=== PATIENT | male | born 1995 | race Caucasian/White ===

== ENCOUNTER 2020-02-08 17:01 | Inpatient (IN) | payer OTHER ==
[~2020-02-08] VITALS: Ht 182.9 cm; Wt 110.7 kg
[2020-02-08] MEDS ORDERED: ONDANSETRON 4MG ODT PO ONE (18:45)
[2020-02-08] MEDS ORDERED: ACETAMINOPHEN 325MG TABLET PO ONE (18:45)
[2020-02-08 19:12] LABS: CLARITY URINE CLEAR (CLEAR); COLOR URINE DARK YELLOW (YELLOW); KETONES URINE 1+ (NEGATIVE); LEUKOCYTE ESTERASE URINE TRACE (NEGATIVE); NITRITE URINE NEGATIVE (NEGATIVE); OCCULT BLOOD URINE TRACE (NEGATIVE); PROTEIN URINE 3+ (NEGATIVE); SPECIFIC GRAVITY URINE 1.035 (1.005-1.030)
[2020-02-08 19:13] LABS: BASOPHILS % 0.2 % (0.0-2.0); HEMATOCRIT. 46.3 % (42.0-52.0); HEMOGLOBIN. 16.3 g/dL (14.0-18.0); LYMPHOCYTES % 16.9 % (20.0-50.0); MEAN CORPUSCULAR HEMOGLOBIN 30.3 pg (28.0-32.0); MEAN CORPUSCULAR VOLUME 86.1 fL (80.0-94.0); MEAN PLATELET VOLUME 7.4 fl (7.4-10.4); MONOCYTES % 5.1 % (2.0-8.0); NEUTROPHILS % 77.8 % (40.0-76.0); PLATELET 171 x1000/uL (130-400); RED BLOOD CELL COUNT 5.38 mill/uL (4.7-6.1); RED CELL DISTRIBUTION WIDTH 12.6 % (11.6-14.6)
[2020-02-08 19:19] LABS: CHLORIDE 107 mEq/L (98-107)
[2020-02-08] MEDS ORDERED: LIDOCAINE HCL/PF 0.5% 5 MG/ML 50ML VIAL INFIL ONE (19:45)
[2020-02-08] MEDS ORDERED: CEFTRIAXONE SODIUM 1 G/VIAL IM ONE (19:45)
[2020-02-08] MEDS ORDERED: AZITHROMYCIN 500 MG in DEXT 5% WATER 250 ML IV ONE (21:00)
[2020-02-08] MEDS ORDERED: DEXAMETHASONE 10 MG/ML VIAL IV ONE (21:45)
[2020-02-08] MEDS ORDERED: ENOXAPARIN 100MG/ML SYR SUBCUT ONE (21:45)
[2020-02-09] MEDS ORDERED: MAGNESIUM/ALUMINUM HYDROXIDE/SIMETHICONE 30ML UDC PO ONE (07:15)
[2020-02-09] MEDS ORDERED: MAGNESIUM/ALUMINUM HYDROXIDE/SIMETHICONE 30ML UDC PO PRN (07:45)
[2020-02-09] MEDS ORDERED: DIPHENHYDRAMINE 50MG/ML VIAL IV PRN (07:45)
[2020-02-09] MEDS: METHYLPREDNISOLONE SOD SUCC 40 MG/ML VIAL IV SCH ×2 (08:28→16:15)
[2020-02-09] MEDS: ONDANSETRON HCL 4MG/2ML INJ IV PRN (08:29)
[2020-02-09] MEDS: ENOXAPARIN 40MG/0.4ML SYR SUBCUT SCH (08:30)
[2020-02-09 12:00] VITALS: BP 129/79
[2020-02-09] MEDS: ACETAMINOPHEN 325MG TABLET PO PRN ×4 (12:42→20:48)
[2020-02-09 13:33] LABS: BG BASE EXCESS 0.2 mmol/L (-2.0-2.0); BG CARBOXYHEMOGLOBIN 0.7 % (0.5-1.5); BG DEOXYHEMOGLOBIN 13.3 % (0.0-5.0); BG HCO3 ACT 24.1 mmol/L (22.0-26.0); BG METHEMOGLOBIN 0.4 % (0.0-1.5); BG OXYGEN SATURATION 86.6 % (92.0-98.5); BG OXYHEMOGLOBIN 85.6 % (94.0-97.0); BG PCO2 37.2 mmHg (35.0-45.0); BG PO2 48.9 mmHg (75.0-100.0); BG SAMPLE SITE RIGHT RADIAL; BG TOTAL HEMOGLOBIN 15.4 g/dL (12.0-18.0)
[2020-02-09 15:52] VITALS: BP 129/79
[2020-02-09 16:00] VITALS: BP 123/70
[2020-02-09] MEDS ORDERED: DEXTROSE 50% WATER 50ML SYRINGE IV PRN (16:15)
[2020-02-09] MEDS: BLOOD SUGAR DIAGNOSTIC STRIP TEST SCH ×2 (17:10→21:31)
[2020-02-09] MEDS: INSULIN LISPRO 100 UNITS/ML SUBCUT SCH ×2 (17:40→21:31)
[2020-02-09] MEDS ORDERED: GUAIFENESIN-DM 200MG-20MG/10ML UDC PO PRN (18:45)
[2020-02-09 20:00] VITALS: BP 129/74
[2020-02-09] MEDS ORDERED: AZITHROMYCIN 500 MG in DEXT 5% WATER 250 ML IV SCH (20:00)
[2020-02-09] MEDS ORDERED: CEFTRIAXONE 1,000 MG in DEXTROSE 5% WATER 50 ML IV SCH (21:00)
[2020-02-09] MEDS: AZITHROMYCIN 500 MG in DEXT 5% WATER 250 ML IV SCH (21:31)
[2020-02-09] MEDS: HYDROCODONE/ACETAMINOPHEN 5/325MG TABLET PO PRN (23:50)
[2020-02-10] VITALS: BP 130/119
[2020-02-10 04:00] VITALS: BP 119/68
[2020-02-10] MEDS: HYDROCODONE/ACETAMINOPHEN 5/325MG TABLET PO PRN (06:04)
[2020-02-10] MEDS: BLOOD SUGAR DIAGNOSTIC STRIP TEST SCH ×4 (06:05→20:37)
[2020-02-10] MEDS: INSULIN LISPRO 100 UNITS/ML SUBCUT SCH ×4 (06:05→20:57)
[2020-02-10] MEDS: ONDANSETRON HCL 4MG/2ML INJ IV PRN (07:04)
[2020-02-10] MEDS: ACETAMINOPHEN 325MG TABLET PO PRN (07:09)
[2020-02-10 07:15] LABS: BASOPHILS % 0.1 % (0.0-2.0); HEMATOCRIT. 41.3 % (42.0-52.0); HEMOGLOBIN. 14.2 g/dL (14.0-18.0); LYMPHOCYTES % 12.6 % (20.0-50.0); MEAN CORPUSCULAR HEMOGLOBIN 29.7 pg (28.0-32.0); MEAN CORPUSCULAR VOLUME 86.5 fL (80.0-94.0); MEAN PLATELET VOLUME 7.7 fl (7.4-10.4); NEUTROPHILS % 82.3 % (40.0-76.0); PLATELET 220 x1000/uL (130-400); RED BLOOD CELL COUNT 4.77 mill/uL (4.7-6.1); RED CELL DISTRIBUTION WIDTH 12.6 % (11.6-14.6)
[2020-02-10 07:48] LABS: CHLORIDE 101 mEq/L (98-107)
[2020-02-10 07:54] LABS: LDL CHOLESTEROL 58 mg/dL (5-100)
[2020-02-10 07:55] LABS: HDL CHOLESTEROL 18 mg/dL (40-59)
[2020-02-10 07:58] VITALS: BP 125/67
[2020-02-10] MEDS: MORPHINE SULFATE 2 MG/ML CPJ (NOT FOR IM USE) IV PRN ×2 (08:56→20:37)
[2020-02-10] MEDS: ENOXAPARIN 40MG/0.4ML SYR SUBCUT SCH (08:57)
[2020-02-10] MEDS ORDERED: DEXAMETHASONE 10 MG/ML VIAL IV SCH (09:00)
[2020-02-10 12:00] VITALS: BP 122/73
[2020-02-10] MEDS: PANTOPRAZOLE SODIUM 40 MG/VIAL IV SCH (12:58)
[2020-02-10 16:00] VITALS: BP 126/78
[2020-02-10 20:00] VITALS: BP 126/69
[2020-02-10] MEDS: AZITHROMYCIN 500 MG in DEXT 5% WATER 250 ML IV SCH (20:20)
[2020-02-10] MEDS ORDERED: CEFTRIAXONE 1,000 MG in DEXTROSE 5% WATER 50 ML IV SCH (21:00)
[2020-02-11] VITALS: BP 118/69
[2020-02-11] MEDS: ONDANSETRON HCL 4MG/2ML INJ IV PRN (03:03)
[2020-02-11] MEDS: MORPHINE SULFATE 2 MG/ML CPJ (NOT FOR IM USE) IV PRN (03:09)
[2020-02-11 04:00] VITALS: BP 124/68
[2020-02-11 06:47] LABS: BASOPHILS % 0.2 % (0.0-2.0); HEMATOCRIT. 40.7 % (42.0-52.0); LYMPHOCYTES % 16.3 % (20.0-50.0); MEAN CORPUSCULAR HEMOGLOBIN 29.9 pg (28.0-32.0); MEAN CORPUSCULAR VOLUME 86.6 fL (80.0-94.0); MEAN PLATELET VOLUME 7.4 fl (7.4-10.4); MONOCYTES % 7.9 % (2.0-8.0); NEUTROPHILS % 75.6 % (40.0-76.0); PLATELET 217 x1000/uL (130-400); RED CELL DISTRIBUTION WIDTH 12.7 % (11.6-14.6)
[2020-02-11] MEDS: BLOOD SUGAR DIAGNOSTIC STRIP TEST SCH ×4 (06:47→20:50)
[2020-02-11] MEDS: INSULIN LISPRO 100 UNITS/ML SUBCUT SCH ×4 (06:54→21:45)
[2020-02-11 07:09] LABS: CHLORIDE 102 mEq/L (98-107)
[2020-02-11 08:01] VITALS: BP 112/73
[2020-02-11] MEDS: PANTOPRAZOLE SODIUM 40 MG/VIAL IV SCH (11:00)
[2020-02-11] MEDS: DEXAMETHASONE 10 MG/ML VIAL IV SCH (11:01)
[2020-02-11] MEDS: ENOXAPARIN 30MG/0.3ML SYR SUBCUT SCH ×2 (11:01→21:43)
[2020-02-11 12:04] VITALS: BP 119/69
[2020-02-11] MEDS: CLONIDINE 0.1MG TABLET PO PRN (12:46)
[2020-02-11] MEDS ORDERED: VANCOMYCIN 2,000 MG in DEXT 5% WATER 500 ML IV SCH (14:00)
[2020-02-11 16:02] VITALS: BP 118/69
[2020-02-11] MEDS: PIPERACILLIN/TAZOBACTAM 3.375 G in DEXT 5% WATER 100 ML IV SCH ×2 (16:14→20:04)
[2020-02-11 20:00] VITALS: BP 128/72
[2020-02-11] MEDS: VANCOMYCIN 1,750 MG in DEXT 5% WATER 500 ML IV SCH (21:43)
[2020-02-12] VITALS: BP 149/80
[2020-02-12] MEDS: PIPERACILLIN/TAZOBACTAM 3.375 G in DEXT 5% WATER 100 ML IV SCH ×4 (02:41→22:02)
[2020-02-12] MEDS: MORPHINE SULFATE 2 MG/ML CPJ (NOT FOR IM USE) IV PRN (03:45)
[2020-02-12 04:30] VITALS: BP 134/83
[2020-02-12] MEDS: VANCOMYCIN 1,750 MG in DEXT 5% WATER 500 ML IV SCH ×2 (05:32→16:32)
[2020-02-12] MEDS: BLOOD SUGAR DIAGNOSTIC STRIP TEST SCH ×4 (06:12→21:00)
[2020-02-12 06:21] LABS: BASOPHILS % 0.2 % (0.0-2.0); HEMATOCRIT. 39.5 % (42.0-52.0); HEMOGLOBIN. 13.6 g/dL (14.0-18.0); LYMPHOCYTES % 23.6 % (20.0-50.0); MEAN CORPUSCULAR HEMOGLOBIN 29.7 pg (28.0-32.0); MEAN CORPUSCULAR VOLUME 86.6 fL (80.0-94.0); MEAN PLATELET VOLUME 7.9 fl (7.4-10.4); MONOCYTES % 9.6 % (2.0-8.0); NEUTROPHILS % 66.6 % (40.0-76.0); PLATELET 233 x1000/uL (130-400); RED BLOOD CELL COUNT 4.56 mill/uL (4.7-6.1); RED CELL DISTRIBUTION WIDTH 12.5 % (11.6-14.6)
[2020-02-12 06:30] LABS: CHLORIDE 104 mEq/L (98-107)
[2020-02-12] MEDS: INSULIN LISPRO 100 UNITS/ML SUBCUT SCH ×4 (06:34→22:16)
[2020-02-12 08:00] VITALS: BP 171/76
[2020-02-12] MEDS: CLONIDINE 0.1MG TABLET PO PRN (09:14)
[2020-02-12] MEDS: ENOXAPARIN 30MG/0.3ML SYR SUBCUT SCH ×2 (09:14→22:02)
[2020-02-12] MEDS: DEXAMETHASONE 10 MG/ML VIAL IV SCH (09:15)
[2020-02-12] MEDS: FAMOTIDINE 20MG/2ML VIAL IV SCH ×2 (09:15→22:02)
[2020-02-12] MEDS ORDERED: SODIUM CHLORIDE 0.9% 500 ML IV NR (11:15)
[2020-02-12] MEDS ORDERED: DEXTROSE 50% WATER 50ML SYRINGE IV PRN (11:15)
[2020-02-12 12:00] VITALS: BP 122/83
[2020-02-12 13:53] LABS: CREATINE KINASE 64 IU/L (39-308)
[2020-02-12 16:00] VITALS: BP_SYST 118; BP_SYST 122; BP_DIAS 76; BP_DIAS 83
[2020-02-12 20:00] VITALS: BP 125/72
[2020-02-12] MEDS: INSULIN GLARGINE UD 100 UNITS/ML SYR SUBCUT SCH (22:17)
[2020-02-13] VITALS: BP 123/76
[2020-02-13] MEDS: PIPERACILLIN/TAZOBACTAM 3.375 G in DEXT 5% WATER 100 ML IV SCH ×2 (00:37→05:46)
[2020-02-13 04:00] VITALS: BP 129/80
[2020-02-13 05:02] LABS: CHLORIDE 106 mEq/L (98-107)
[2020-02-13 05:14] LABS: VANCOMYCIN TROUGH 4.9 ug/mL (5.0-10.0)
[2020-02-13 06:02] LABS: BASOPHILS % 0.4 % (0.0-2.0); EOSINOPHILS % 0.3 % (0.0-5.0); HEMATOCRIT. 41.9 % (42.0-52.0); HEMOGLOBIN. 14.4 g/dL (14.0-18.0); LYMPHOCYTES % 25.4 % (20.0-50.0); MEAN CORPUSCULAR HEMOGLOBIN 29.7 pg (28.0-32.0); MEAN CORPUSCULAR VOLUME 86.4 fL (80.0-94.0); MEAN PLATELET VOLUME 8.1 fl (7.4-10.4); MONOCYTES % 8.2 % (2.0-8.0); NEUTROPHILS % 65.7 % (40.0-76.0); PLATELET 265 x1000/uL (130-400); RED BLOOD CELL COUNT 4.85 mill/uL (4.7-6.1); RED CELL DISTRIBUTION WIDTH 12.3 % (11.6-14.6)
[2020-02-13] MEDS: BLOOD SUGAR DIAGNOSTIC STRIP TEST SCH ×4 (06:17→21:52)
[2020-02-13] MEDS: ACETAMINOPHEN 325MG TABLET PO PRN (06:35)
[2020-02-13] MEDS: INSULIN LISPRO 100 UNITS/ML SUBCUT SCH ×6 (06:54→21:51)
[2020-02-13 08:00] VITALS: BP 132/64
[2020-02-13] MEDS: ENOXAPARIN 30MG/0.3ML SYR SUBCUT SCH ×2 (08:55→21:40)
[2020-02-13] MEDS: DEXAMETHASONE 10 MG/ML VIAL IV SCH (08:55)
[2020-02-13] MEDS: FAMOTIDINE 20MG/2ML VIAL IV SCH ×2 (08:55→21:39)
[2020-02-13] MEDS: INSULIN GLARGINE UD 100 UNITS/ML SYR SUBCUT SCH ×2 (11:04→21:51)
[2020-02-13] MEDS: MORPHINE SULFATE 2 MG/ML CPJ (NOT FOR IM USE) IV PRN (11:07)
[2020-02-13 12:00] VITALS: BP 126/67
[2020-02-13] MEDS ORDERED: INSULIN LISPRO 100 UNITS/ML SUBCUT SCH (12:00)
[2020-02-13] MEDS ORDERED: DEXTROSE 50% WATER 50ML SYRINGE IV PRN (12:00)
[2020-02-13] MEDS: CEFTRIAXONE 1,000 MG in DEXTROSE 5% WATER 50 ML IV SCH (15:25)
[2020-02-13 16:00] VITALS: BP 125/64
[2020-02-13 20:00] VITALS: BP 123/77
[2020-02-14] VITALS: BP 116/64
[2020-02-14 04:00] VITALS: BP 116/73
[2020-02-14] MEDS: INSULIN LISPRO 100 UNITS/ML SUBCUT SCH ×7 (06:08→22:55)
[2020-02-14] MEDS: BLOOD SUGAR DIAGNOSTIC STRIP TEST SCH ×4 (06:09→21:00)
[2020-02-14 08:00] VITALS: BP 122/67
[2020-02-14] MEDS: CEFTRIAXONE 1,000 MG in DEXTROSE 5% WATER 50 ML IV SCH (08:23)
[2020-02-14] MEDS: DEXAMETHASONE 10 MG/ML VIAL IV SCH (08:25)
[2020-02-14] MEDS: ENOXAPARIN 30MG/0.3ML SYR SUBCUT SCH ×2 (08:25→22:15)
[2020-02-14] MEDS: FAMOTIDINE 20MG/2ML VIAL IV SCH ×2 (08:26→22:15)
[2020-02-14 09:39] LABS: HEMATOCRIT. 43.4 % (42.0-52.0); MEAN CORPUSCULAR HEMOGLOBIN 29.9 pg (28.0-32.0); MEAN CORPUSCULAR VOLUME 86.7 fL (80.0-94.0); MEAN PLATELET VOLUME 7.8 fl (7.4-10.4); PLATELET 324 x1000/uL (130-400); RED BLOOD CELL COUNT 5.01 mill/uL (4.7-6.1); RED CELL DISTRIBUTION WIDTH 12.3 % (11.6-14.6)
[2020-02-14 10:02] LABS: CHLORIDE 106 mEq/L (98-107)
[2020-02-14] MEDS: INSULIN GLARGINE UD 100 UNITS/ML SYR SUBCUT SCH ×2 (10:20→22:16)
[2020-02-14 11:12] LABS: PLATELET ESTIMATE NORMAL
[2020-02-14 12:00] VITALS: BP 114/68
[2020-02-14 16:00] VITALS: BP 122/77
[2020-02-14] MEDS ORDERED: LANTUSUD SUBCUT (19:54)
[2020-02-14] MEDS ORDERED: AZIT500T8 MT (19:54)
[2020-02-14] MEDS ORDERED: INSLIS SUBCUT (19:54)
[2020-02-14] MEDS ORDERED: BLOO-1379 HHN (19:54)
[2020-02-14 20:00] VITALS: BP 114/68
[2020-02-15] VITALS: BP 118/74
[2020-02-15 04:00] VITALS: BP 107/65
[2020-02-15] MEDS: BLOOD SUGAR DIAGNOSTIC STRIP TEST SCH ×2 (06:21→12:45)
[2020-02-15] MEDS: INSULIN LISPRO 100 UNITS/ML SUBCUT SCH ×4 (06:24→12:41)
[2020-02-15 08:00] VITALS: BP 118/72
[2020-02-15] MEDS: FAMOTIDINE 20MG/2ML VIAL IV SCH (10:40)
[2020-02-15] MEDS: DEXAMETHASONE 10 MG/ML VIAL IV SCH (10:41)
[2020-02-15] MEDS: CEFTRIAXONE 1,000 MG in DEXTROSE 5% WATER 50 ML IV SCH (10:41)
[2020-02-15] MEDS: ENOXAPARIN 30MG/0.3ML SYR SUBCUT SCH (10:41)
[2020-02-15] MEDS: INSULIN GLARGINE UD 100 UNITS/ML SYR SUBCUT SCH (10:42)
[2020-02-15 12:00] VITALS: BP 112/65
[2020-02-15 15:22] VITALS: BP 20/112
== END 2020-02-15 17:05 | disposition home or self-care (01) | DRG 871 ==
LOC: ER 17:01 → 8WST 23:22 → ENRESERV 02-09 09:17
PROVIDERS: ADMIT Internal Medicine; ATTEND Internal Medicine
DX: A41.89 Other specified sepsis (principal); U07.1 COVID-19; J96.01 Acute respiratory failure with hypoxia; J12.89 Other viral pneumonia; E43 Unspecified severe protein-calorie malnutrition; K52.9 Noninfective gastroenteritis and colitis, unspecified; D72.810 Lymphocytopenia; K76.0 Fatty (change of) liver, not elsewhere classified; R16.1 Splenomegaly, not elsewhere classified; E11.65 Type 2 diabetes mellitus with hyperglycemia; I10 Essential (primary) hypertension; Z68.33 Body mass index [BMI] 33.0-33.9, adult
CPT/HCPCS: 36415; 36600; 71045; 74176; 80048; 80053; 80061; 80202; 81003; 82375; 82550; 82728; 82805; 82962; 83036; 83605; 83615; 84443; 85025; 85379; 86141; 86850; 86900; 87077; 87186; 87635; 93005; 99285; C9113; J0456; J0696; J1100; J1650; J1815; J2270; J2405; J2543; J2920; J3370; J3490; J7040; J7060; Q0162